=== PATIENT | female | born 1965 | race Caucasian/White ===

== ENCOUNTER 2017-08-15 | Emergency (ER) | payer BC ==
[~2017-08-15] VITALS: Ht 162.6 cm; Wt 70.0 kg
[2017-08-15 00:07] VITALS: Ht 162.6 cm; Wt 70.0 kg
[2017-08-15 01:41] VITALS: BP 150/89
== END 2017-08-15 01:41 | disposition home or self-care (01) ==
LOC: ED
DX: J32.9 Chronic sinusitis, unspecified (principal); E03.8 Other specified hypothyroidism
CPT/HCPCS: J1885